=== PATIENT | female | born 1960 | race Caucasian/White ===

== ENCOUNTER 2024-08-09 03:48 | Emergency (ER) | payer MEDICAID, OTHER ==
[~2024-08-09] VITALS: Ht 165.1 cm; Wt 15068.0 kg
[~2024-08-09 03:48] MED LIST: DIVA-153 PO; MIRT-89 PO; TRAZ-252 PO
[2024-08-09] MEDS: ACETAMINOPHEN 325 MG TABLET PO ONE (04:44)
[2024-08-09 06:30] VITALS: BP 133/76; PULSE 74; RESP 16; TEMP 98.3; O2SAT 100
== END 2024-08-09 06:40 | disposition home or self-care (01) ==
LOC: EMS 03:49
DX: R51.9 Headache, unspecified (principal); J45.909 Unspecified asthma, uncomplicated; F25.9 Schizoaffective disorder, unspecified; F17.210 Nicotine dependence, cigarettes, uncomplicated; Z91.018 Allergy to other foods
CPT/HCPCS: 99283